=== PATIENT | female | born 1980 | race Caucasian/White ===

== ENCOUNTER 2016-12-02 23:45 | Emergency (ER) | payer MEDICAID ==
[2016-12-03 00:59] LABS: BASOPHIL % 0.4 % (0-2); PLATELET COUNT 262 x10^3mcL (130-400); RED CELL DISTRIBUTION WIDTH 13.6 % (11.5-14.5)
[2016-12-03 03:42] LABS: UA SPECIFIC GRAVITY 1.015 (1.005-1.035); microscopic required? YES; urine erythrocyte 3+ (NEGATIVE)
[2016-12-03 04:06] VITALS: BP 140/70
== END 2016-12-03 04:06 | disposition home or self-care (01) ==
LOC: ED 23:45
PROVIDERS: Emergency Medicine
DX: O23.41 Unspecified infection of urinary tract in pregnancy, first trimester (principal); Z3A.01 Less than 8 weeks gestation of pregnancy
CPT/HCPCS: J1885